=== PATIENT | male | born 2000 | race Caucasian/White ===

== ENCOUNTER 2018-04-15 15:19 | Observation (INO) | payer OTHER ==
[~2018-04-15] VITALS: Ht 195.6 cm; Wt 189.6 kg
[2018-04-15] MEDS ORDERED: SODIUM CHLORIDE 0.9% 1000ML 1,000 ML IV STA (16:01)
[2018-04-15] MEDS ORDERED: INSULIN REGULAR, HUMAN 100 UNIT/1 ML 3ML VIAL IV ONE (16:15)
[2018-04-15 16:23] LABS: BASOPHILS # (AUTO) 0.1 (0.0-0.1); BASOPHILS % 0.6 % (0.0-1.0); EOSINOPHILS # (AUTO) 0.1 (0.0-0.4); EOSINOPHILS % 1.5 % (0.0-6.0); HEMATOCRIT 48.1 % (38.2-49.6); HEMOGLOBIN 16.9 g/dL (14.0-18.0); LYMPHOCYTES # (AUTO) 2.3 (1.0-3.2); LYMPHOCYTES % 28.2 % (18.0-39.1); MEAN CORPUSCULAR HGB CONC 35.1 g/dL (31-35); MEAN CORPUSCULAR VOLUME 82.5 fL (81-99); MONOCYTES # (AUTO) 0.5 (0.2-0.8); MONOCYTES % 6.1 % (4.4-11.3); NEUTROPHILS # (AUTO) 5.2 (2.1-6.9); PLATELET COUNT 340 x10e3/uL (140-360); RED BLOOD COUNT 5.83 x10e6/uL (4.3-5.7); RED CELL DISTRIBUTION WIDTH 12.4 % (11.7-14.4)
[2018-04-15 16:27] LABS: BILIRUBIN,URINE NEGATIVE (NEGATIVE); CLARITY,URINE CLEAR (CLEAR); COLOR,URINE YELLOW (YELLOW); KETONES,URINE NEGATIVE (NEGATIVE); LEUKOCYTE ESTERASE ,URINE NEGATIVE (NEGATIVE); NITRITE,URINE NEGATIVE (NEGATIVE); PROTEIN,URINE DIPSTICK NEGATIVE (NEGATIVE); URINE UROBILINOGEN 0.2 mg/dL (0.2 - 1)
[2018-04-15 16:35] LABS: MUCUS,URINE RARE (RARE); RBC,URINE 0-5 /HPF (0-5); WBC,URINE (MAN) 0-5 /HPF (0-5)
[2018-04-15 16:43] LABS: ALANINE AMINOTRANSFERASE 173 IU/L (0-55); ALBUMIN 4.4 g/dL (3.5-5.0); ALBUMIN/GLOBULIN RATIO 1.1 (0.8-2.0); ALKALINE PHOSPHATASE 99 IU/L (40-150); ANION GAP 15.8 mmol/L (8-16); BLOOD UREA NITROGEN 9 mg/dL (7-26); BUN/CREATININE RATIO 7 (6-25); CALCIUM 10.6 mg/dL (8.4-10.2); CARBON DIOXIDE 25 mmol/L (22-29); CHLORIDE 95 mmol/L (98-107); CREATININE, SERUM 1.28 mg/dL (0.72-1.25); EST GLOMERULAR FILTRATION RATE > 60 ML/MIN (60-); LIPASE 37 U/L (8-78); POTASSIUM 3.8 mmol/L (3.5-5.1); SODIUM 132 mmol/L (136-145)
[2018-04-15 16:45] LABS: GLUCOSE 458 mg/dL (74-118)
[2018-04-15] MEDS ORDERED: DEXTROSE 50% SYRINGE 50 ML IV PRN (17:00)
[2018-04-15] MEDS ORDERED: LISINOPRIL20 MG PO (17:01)
[2018-04-15] MEDS ORDERED: OLANZAPINE20 MG (17:01)
[2018-04-15] MEDS ORDERED: LISINOPRIL10 MG (17:01)
[2018-04-15] MEDS: SODIUM CHLORIDE 0.9% 1000ML 1,000 ML IV SCH (18:12)
[2018-04-15 20:00] VITALS: BP 155/103
[2018-04-15] MEDS ORDERED: INSULIN DETEMIR 100 UNIT/ML PEN SQ SCH (21:00)
[2018-04-15] MEDS ORDERED: INSULIN REGULAR, HUMAN 100 UNIT/1 ML 3ML VIAL SQ SCH (21:00)
[2018-04-15] MEDS: INSULIN LISPRO 100 UNIT/1 ML 3ML VIAL SQ SCH (21:15)
[2018-04-15 22:03] VITALS: BP 155/103
[2018-04-15 22:04] VITALS: BP 155/103
[2018-04-15] MEDS ORDERED: VRAYLAR PO (22:19)
[2018-04-16] VITALS (9 sets, daily range): BP systolic 126–166; BP diastolic 53–95
[2018-04-16] MEDS: SODIUM CHLORIDE 0.9% 1000ML 1,000 ML IV SCH ×2 (02:54→15:13)
[2018-04-16] MEDS: INSULIN LISPRO 100 UNIT/1 ML 3ML VIAL SQ SCH ×5 (07:30→20:39)
[2018-04-16] MEDS ORDERED: INSULIN LISPRO 100 UNIT/1 ML 3ML VIAL SQ SCH ×2 (07:30→12:00)
[2018-04-16] MEDS: LISINOPRIL 20 MG TAB PO SCH (08:03)
[2018-04-16 11:05] LABS: ALANINE AMINOTRANSFERASE 132 IU/L (0-55); ALBUMIN 3.2 g/dL (3.5-5.0); ALBUMIN/GLOBULIN RATIO 1.1 (0.8-2.0); ALKALINE PHOSPHATASE 69 IU/L (40-150); ANION GAP 11.9 mmol/L (8-16); BLOOD UREA NITROGEN 10 mg/dL (7-26); BUN/CREATININE RATIO 12 (6-25); CALCIUM 9.2 mg/dL (8.4-10.2); CARBON DIOXIDE 22 mmol/L (22-29); CHLORIDE 103 mmol/L (98-107); CREATININE, SERUM 0.83 mg/dL (0.72-1.25); EST GLOMERULAR FILTRATION RATE > 60 ML/MIN (60-); GLUCOSE 335 mg/dL (74-118); POTASSIUM 3.9 mmol/L (3.5-5.1); SODIUM 133 mmol/L (136-145)
[2018-04-16 14:24] LABS: CHOL/HDL RATIO 7.3 (3.9-4.7)
[2018-04-16 14:44] LABS: FREE T4 (FREE THYROXINE) 1.05 ng/dL (0.9-1.8); THYROID STIMULATING HORMONE 1.616 uIU/mL (0.350-4.940)
--- NOTE | 2018-04-16 15:32 | Consultation ---
DATE OF CONSULTATION: April 15, 2018 ENDOCRINE CONSULTATION Thank you much for referring this patient. This is a 17-year-old white male gentleman who is referred to me for evaluation of new onset diabetes mellitus. Patient reported to the emergency room. Patient initially reported to Dr. Yu's office with polyuria, polydipsia, dryness of mouth and she was found to have a very significantly high blood sugar. Patient was sent to the emergency room with a blood sugar where the blood sugar was found to be 458 and anion gap was 15.8. His liver enzymes were also elevated. Patient is not a known diabetic. He does have family history of diabetes. Patient also has history of schizophrenia for which he is on antipsychotic medications. Patient does not smoke. He does not drink alcohol or do any drugs. He has history of obesity as well and hypertension. PHYSICAL EXAMINATION: GENERAL: The patient is alert, awake, a little bit apprehensive. He is morbidly obese. VITAL SIGNS: Heart rate is around 78. Blood pressure is 160/90 mmHg. HEENT: Essentially unremarkable. NECK: Thyroid is palpable. Clinically, he is near euthyroid. CHEST: Bilateral vesicular breathing. Mild bronchospasm. CARDIAC: Both 1st and 2nd heart sounds. There is no 3rd or 4th heart sound. Ejection sound is grade 2/6. 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 His other routine medications at home include trazodone, lisinopril, vraylar for schizophrenia. He is Zestril 10 mg once daily. His hemoglobin A1c is 13.6. CLINICAL IMPRESSION 1. Diabetes mellitus, probably type 2. 2. Mild diabetic ketoacidosis. 3. Hypertension. 4. Increased liver enzymes. 5. History of schizophrenia. PLAN: The plan at this time is that the patient has been started on IV fluids. Monitor his blood sugars closely. Will start him on subcutaneous insulin 4 times a day. Patient needs extensive diabetic and dietary education. I also discussed the condition with the patient's grandmother and he needs a lot of support system because of underlying schizophrenia as well. Thanks again for referring this patient. I will be following this patient with you. Job#: [id number]
[2018-04-16] MEDS ORDERED: BUSPIRONE HCL5 MG PO (18:24)
[2018-04-16] MEDS ORDERED: BUSPIRONE HCL 5 MG TAB PO PRN (18:30)
[2018-04-16] MEDS ORDERED: VRAYLAR 6 MG PO SCH ×2 (21:00)
[2018-04-16] MEDS ORDERED: INSULIN DETEMIR 100 UNIT/ML PEN SQ SCH ×2 (21:00)
[2018-04-17] MEDS: SODIUM CHLORIDE 0.9% 1000ML 1,000 ML IV SCH ×2 (03:06→07:52)
[2018-04-17 04:05] VITALS: BP 138/64
[2018-04-17 07:21] VITALS: BP 117/74
[2018-04-17 07:37] VITALS: BP 117/74
[2018-04-17] MEDS: INSULIN LISPRO 100 UNIT/1 ML 3ML VIAL SQ SCH ×5 (07:44→17:55)
[2018-04-17] MEDS: LISINOPRIL 20 MG TAB PO SCH (07:53)
[2018-04-17 11:28] VITALS: BP 138/77
[2018-04-17 15:22] VITALS: BP 136/66
[2018-04-17] MEDS ORDERED: INSULIN LISPRO 100 UNIT/1 ML 3ML VIAL SQ SCH (17:00)
[2018-04-17] MEDS ORDERED: INSULIN DETEMIR 100 UNIT/ML PEN SQ SCH (21:00)
== END 2018-04-17 17:54 | disposition home or self-care (01) ==
LOC: ER 15:19 → ERHOLD 17:50 → IMCU 19:31 → OBSVTOIN 04-17 11:56 → INTOOBSV 04-17 11:56
PROVIDERS: ADMIT Internal Medicine; ATTEND Internal Medicine
DX: E11.10 Type 2 diabetes mellitus with ketoacidosis without coma (principal); Z79.4 Long term (current) use of insulin; I10 Essential (primary) hypertension; E66.01 Morbid (severe) obesity due to excess calories; Z71.3 Dietary counseling and surveillance; R74.8 Abnormal levels of other serum enzymes; F20.9 Schizophrenia, unspecified; E78.5 Hyperlipidemia, unspecified
CPT/HCPCS: 36415 ×3; 80053 ×2; 80061; 81001; 82948 ×3; 83036; 83690; 84439; 84443; 85025; 87086; 99284; G0378 ×3; J7030 ×3